=== PATIENT | male | born 1950 | race Hispanic/Latino ===

== ENCOUNTER → 2023-12-15 | Outpatient (CLI) | payer OTHER | END | disposition home or self-care (01) | LOC: RAH 12:59 | PROVIDERS: ATTEND Internal Medicine | DX: I12.9 Hypertensive chronic kidney disease with stage 1 through stage 4 chronic kidney disease, or unspecified chronic kidney disease (principal); N18.9 Chronic kidney disease, unspecified | CPT/HCPCS: 93306 ==

== ENCOUNTER 2024-02-22 06:57 | Day surgery (SDC) | payer OTHER ==
[2024-02-18 12:32] LABS: BASOPHILS # (AUTO) 0.02 K/uL (0.00-0.20); BASOPHILS % (AUTO) 0.4 % (0.0-5.0); EOSINOPHILS # (AUTO) 0.08 K/uL (0.00-0.70); EOSINOPHILS % (AUTO) 1.5 % (0.0-8.0); HEMATOCRIT 41.5 % (42-54); IMMATURE GRANULOCYTE ABSOLUTE 0.01 K/uL (0-1); LYMPHOCYTES # (AUTO) 1.6 K/uL (1.0-4.8); LYMPHOCYTES % (AUTO) 30.4 % (21.0-51.0); MEAN CORPUSCULAR HEMOGLOBIN 29.4 pg (27.0-33.0); MEAN CORPUSCULAR VOLUME 91.8 fL (79-99); MONOCYTES # (AUTO) 0.4 K/uL (0.1-1.0); MONOCYTES % (AUTO) 7.5 % (3.0-13.0); NEUTROPHILS # (AUTO) 3.1 K/uL (1.8-7.7); PLATELET COUNT (AUTO) 211 K/uL (130-400); RED BLOOD CELL COUNT(AUTO) 4.52 MIL/uL (4.50-6.20); WHITE BLOOD COUNT (AUTO) 5.2 K/uL (4.8-10.8)
--- NOTE | 2024-02-18 12:41 | EKG ---
[facility] Test Date: 2024-02-18 Test Time: 13:18:29 Pat Name: YADI GUTIERREZ Department: [facility] Room: Gender: M [employer]: [id number] : 1950 Requested By: CAROL OLIVEIRA Order Number: [id number] Reading MD: Nik Brito Measurements Intervals [place] Rate: 66 P: 37 HI: 171 QRS: 71 QRSD: 81 T: 63 QT: 409 QTc: 429 Interpretive Statements Sinus rhythm Compared to ECG 08/17/2016 23:44:42 No significant changes Electronically Signed On 02-18-2024 14:02:16 CLINICAL LABORATORY DIRECTOR by Nik Brito Please click the below link to view image of tracing.
[2024-02-18 12:43] VITALS: BP 120/65; PULSE 74; RESP 16; TEMP 97.7
[2024-02-18 12:47] LABS: INR 1.02 (0.85-1.15)
[2024-02-18 12:48] LABS: PARTIAL THROMBOPLASTIN TIME 25.4 SEC (26.3-35.5)
[2024-02-18 12:51] LABS: CREATININE 0.9 mg/dL (0.5-1.3); POTASSIUM 4.7 mmol/L (3.5-5.1)
[2024-02-22] VITALS (13 sets, daily range): BP systolic 132–152; BP diastolic 62–84; PULSE 54–72; RESP 13–20; TEMP 96.6–98
[~2024-02-22] VITALS: Ht 157.5 cm; Wt 78.7 kg
[~2024-02-22 06:57] MED LIST: ASPI-1197 PO; ATOR10 PO; EMPA25TA PO; LISI2.5T13 PO; SEMA1PEN3 SQ
[2024-02-22] MEDS: 0.9%NACL 1000ML 1,000 ML IV ONE (07:26)
[2024-02-22] MEDS: ceFAZolin SODIUM 2 GM VIAL ONE (07:26)
[2024-02-22] MEDS ORDERED: LIDOCAINE HCL MPF 1% 5ML VIAL ONE (07:30)
[2024-02-22] MEDS ORDERED: rocuRONium bROMide 10MG/1ML 5ML VL ONE (07:30)
[2024-02-22] MEDS ORDERED: proPOFol 10 MG/ML 20ML VIAL IV ONE (07:30)
[2024-02-22] MEDS ORDERED: MIDAZOLAM HCL 1 MG/ML 2ML VIAL ONE (07:30)
[2024-02-22] MEDS ORDERED: ondanSETRON 4MG INJ ONE (07:31)
[2024-02-22] MEDS ORDERED: dexaMETHasone SOD PHOSPHATE 4 MG/ML 1ML VIAL ONE (07:31)
[2024-02-22] MEDS ORDERED: FENTanyl CITRate PF 50 MCG/1 ML 2ML VIAL ONE ×2 (07:31→09:12)
[2024-02-22] MEDS ORDERED: NEOSTIGMINE METHYLSULFATE 1MG/ML IV ONE (07:32)
[2024-02-22] MEDS ORDERED: GLYCOPYRROLATE 0.2 MG/ML 5 ML VIAL ONE (07:32)
[2024-02-22] MEDS ORDERED: BUPIvacaine/PF 0.25% 30ML VIAL IJ ONE (07:54)
[2024-02-22] MEDS ORDERED: phenylEPHRINE HCL 10 MG/ML 1ML VIAL IV ONE (08:13)
[2024-02-22] MEDS ORDERED: ketOROlac 30MG VIAL (30MG/ML) ONE (08:57)
[2024-02-22] MEDS: BUPIvacaine/PF 0.5% 30ML VIAL ONE (09:04)
--- NOTE | 2024-02-22 09:21 | OP ---
Operative Note: DATE OF PROCEDURE: 02/22/24 SURGEON: CAROL OLIVEIRA MD WARP DRAWER: [] ANESTHESIA: [] General ANESTHESIOLOGIST/SILVER LAP MACHINE TENDER: [] PREOPERATIVE DIAGNOSIS: [] Right inguinal hernia POSTOPERATIVE DIAGNOSIS: [] The same SYNOPSIS: [] PROCEDURE: [] Robotic right inguinal hernia repair ESTIMATED BLOOD LOSS: [] None INDICATIONS: [] DESCRIPTION OF PROCEDURE: [] With the patient prepped in usual fashion and a Ward catheter placed we inserted the Veress needle in the left upper quadrant abdomen insufflated. Supraumbilical incision was created and a millimeter da Carie trocar was inserted. Under direct vision I remove the needle and I placed 2 da Carie trochars 1 in each the side of the abdomen. Then we placed the patient in Trendelenburg and I docked the robot. I went to the console and observe a right inguinal hernia. This seems to be of the indirect type. Using cautery I scored the peritoneum and I brought him down bluntly. I exposed the Mohinder's ligament and the indirect area I reduce a large hernia sac preserving the spermatic cords and visualizing the vas deferens and spermatic cords. The hernia was reduced without any problems. After observing the myopectineal line and the Mohinder's ligament I placed a 3 D MAX MId mid mesh on the right side. This was a large one. I placed it over the Mohinder's ligament covering couple centimeters below and the indirect space. The sac with the lipoma was placed over the mesh. I then closed the peritoneum with a 2 oh V-Loc. No anchoring of the mesh was necessary. We did a closure continues and dropped the pressure to 8 cm. After this was done I remove the needle and I remove all the trochars under direct vision. The skin was closed with 4-0 Monocryl and Dermabond. We placed 20 cc CAROL OLIVEIRA MD Feb 22, 2024 09:21
[2024-02-22] MEDS ORDERED: IBUP-1493 PO (09:56)
== END 2024-02-22 10:45 | disposition home or self-care (01) ==
LOC: DAH 06:57
PROVIDERS: ATTEND Surgery
DX: K40.90 Unilateral inguinal hernia, without obstruction or gangrene, not specified as recurrent (principal); E78.5 Hyperlipidemia, unspecified; E11.42 Type 2 diabetes mellitus with diabetic polyneuropathy; E11.43 Type 2 diabetes mellitus with diabetic autonomic (poly)neuropathy; I12.9 Hypertensive chronic kidney disease with stage 1 through stage 4 chronic kidney disease, or unspecified chronic kidney disease; N18.2 Chronic kidney disease, stage 2 (mild); E11.59 Type 2 diabetes mellitus with other circulatory complications; E11.3293 Type 2 diabetes mellitus with mild nonproliferative diabetic retinopathy without macular edema, bilateral; E78.2 Mixed hyperlipidemia; E66.9 Obesity, unspecified; Z87.442 Personal history of urinary calculi; Z68.33 Body mass index [BMI] 33.0-33.9, adult; Z90.49 Acquired absence of other specified parts of digestive tract; Z86.73 Personal history of transient ischemic attack (TIA), and cerebral infarction without residual deficits; Z79.01 Long term (current) use of anticoagulants
CPT/HCPCS: 80048; 85025; 85610; 85730; 36415; 93005; 49650; 82948 ×2; A6260; J1100; A4344; A4215 ×2; J3010 ×2; J7030; J3490 ×3; J2250; J2704; J2405; J1885; J2710; J0665; J2371; J0690; C1781; A4223; A4222; A4221; A4663; A4450; A4600